=== PATIENT | male | born 1955 | race Caucasian/White ===

== ENCOUNTER 2018-11-22 08:35 | Emergency (ER) | payer OTHER ==
[~2018-11-22] VITALS: Ht 175.3 cm; Wt 83.2 kg
[~2018-11-22 08:35] MED LIST: AMOX1TAB58 PO; ASPI81TA50 PO; DIPH25CA58 PO; FISH12002 PO; FLAX100031 PO; HYDR1TAB10 PO; MELA3TAB2 PO; SULF1TAB24 PO
[2018-11-22 08:49] VITALS: BP 126/67
[2018-11-22] MEDS ORDERED: FLUT9.9S NS (09:16)
--- NOTE | 2018-11-22 09:16 | PHYS DOC ---
Past History Past Medical History: Kidney Stones, Other Past Surgical History: Other Alcohol Use: Rarely Drug Use: None Adult General Chief Complaint Chief Complaint: sinus pressure HPI HPI Patient is a 63 year old male who presents with complaint of bilateral sinus pressure. Patient has had congestion over the past 5 days. Notes previous history of chronic sinusitis symptoms. Patient states that he has had bilateral maxillary sinus surgery 9 months ago but has started to have recurrent sinus congestion off and on over the past 3 months. Has been using oral decongestants and Mucinex with no significant relief of symptoms. Denies any fever. Has used Afrin at night time to help with sleep over the past 5 nights. States symptoms improved during the day but are worse at nighttime. Denies any cough, shortness of breath. Has had postnasal drip and sore throat. Review of Systems Review of Systems Constitutional: Denies fever or chills [] Eyes: Denies change in visual acuity, redness, or eye pain [] HENT: Nasal congestion, sinus pressure, sore throat, postnasal drip[] Respiratory: Denies cough or shortness of breath [] Cardiovascular: Denies chest pain or edema[] GI: Denies abdominal pain, nausea, vomiting, bloody stools or diarrhea [] : Denies dysuria or hematuria [] Musculoskeletal: Denies back pain or joint pain [] Integument: Denies rash or skin lesions [] Neurologic: Denies headache, focal weakness or sensory changes [] All other systems were reviewed and found to be within normal limits, except as documented in this note. Allergies Allergies Allergies Coded Allergies Type Severity Reaction Last Updated Verified No Known Drug Allergies 02/23/16 No Physical Exam Physical Exam Constitutional: Well developed, well nourished, no acute distress, non-toxic appearance. [] HENT: Normocephalic, atraumatic, bilateral external ears normal, oropharynx moist, no oral exudates, nasal mucosal dryness bilaterally, mild nasal mucosal edema, maxillary sinuses nontender on palpation. [] Eyes: PERRLA, EOMI, conjunctiva normal, no discharge. [] Neck: Normal range of motion, no tenderness, supple, no stridor. [] Cardiovascular:Heart rate regular rhythm, no murmur [] Lungs & Thorax: Bilateral breath sounds clear to auscultation [] Abdomen: Bowel sounds normal, soft, no tenderness, no masses, no pulsatile masses. [] Skin: Warm, dry, no erythema, no rash. [] Back: No tenderness, no CVA tenderness. [] Extremities: No tenderness, no cyanosis, no clubbing, ROM intact, no edema. [] Neurologic: Alert and oriented X 3, normal motor function, normal sensory function, no focal deficits noted. [] Current Patient Data Vital Signs Vital Signs Date Time Temp Pulse Resp B/P (MAP) Pulse Ox O2 Delivery O2 Flow Rate FiO2 11/22/18 08:49 Room Air 11/22/18 08:49 97.6 66 20 96 Lab Results Not performed EKG EKG Not performed[] Radiology/Procedures Radiology/Procedures Not performed[] Course & Med Decision Making Course & Med Decision Making Pertinent Labs and Imaging studies reviewed. (See chart for details) Patient's exam consistent with nonbacterial bilateral maxillary sinusitis. At this time antibiotic therapy is not indicated. Advised use of Flonase nasal spray and use of Claritin daily to add current regimen. Advised to discontinue use of Afrin and advised limited dose of oral decongestants. Recommended use of warm moist air and nighttime humidifier for continued treatment of congestion. Recommended follow-up in 3-5 days with primary doctor for reevaluation and return to emergency department for any worsening symptoms. Patient was understanding and in agreement with treatment plan.[] Dragon Disclaimer Dragon Disclaimer This electronic medical record was generated, in whole or in part, using a voice recognition dictation system. Departure Departure: Impression: Primary Impression: Viral sinusitis Disposition: 01 HOME, SELF-CARE Condition: STABLE Referrals: EILEEN JOYA DO (PCP) Patient Instructions: Sinusitis Additional Instructions: Follow up with your primary doctor in 5 days for reevaluation. Return to the emergency department for any worsening symptoms. Scripts Fluticasone Propionate (Flonase Allergy Relief) 9.9 Ml [place].susp 2 SPRAYS NS DAILY for 30 Days, BOTTLE Prov: CRISTI JACOBS MD 11/22/18 CRISTI JACOBS MD Nov 22, 2018 09:16
== END 2018-11-22 09:30 | disposition home or self-care (01) ==
LOC: ER 08:35
DX: J32.0 Chronic maxillary sinusitis (principal); B97.89 Other viral agents as the cause of diseases classified elsewhere; Z87.442 Personal history of urinary calculi
CPT/HCPCS: 99283

== ENCOUNTER 2020-08-20 05:50 | Emergency (ER) | payer OTHER ==
[~2020-08-20] VITALS: Ht 175.3 cm; Wt 81.8 kg
[~2020-08-20 05:50] MED LIST changes: +FLUT9.9S NS; -MELA3TAB2 PO; +MELA3TAB4 PO
[2020-08-20 05:59] VITALS: BP 143/87
[2020-08-20] MEDS ORDERED: KETOROLAC 30 MG/ML VIAL. IVP ONE ×2 (06:00)
[2020-08-20] MEDS ORDERED: ONDANSETRON PF 4 MG/2 ML VIAL. IVP ONE (06:00)
[2020-08-20] MEDS ORDERED: FAMOTIDINE 20 MG/2 ML VIAL IVP ONE (06:00)
[2020-08-20] MEDS ORDERED: IV RINGERS SOLUTION,LACTATED 1,000 ML IV SCH (06:00)
--- NOTE | 2020-08-20 06:00 | PHYS DOC ---
Past History Past Medical History: Kidney Stones, Other (SHERI SINGH MD) Past Surgical History: Other (SHERI SINGH MD) Alcohol Use: Rarely Drug Use: None (SHERI SINGH MD) General Adult HPI: HPI: ".. I am having another kidneystone...this is my fourth one... It been hurting the last 8 hrs.. right side... I ve had stents.. .. basket.. and lithotripsy... This happens about every 5 years... " " I like that Toradol drug.... And that Demerol drug.. Do not like that morphine drug.. " Patient is a 65. year old male who presents with above hx and complaints of kidney stone pain right flank for the past 8 hours. Is having associated nausea. Patient is retired . (SHERI SINGH MD) Review of Systems: Review of Systems: Constitutional: Denies fever or chills Eyes: Denies change in visual acuity HENT: Denies nasal congestion or sore throat Respiratory: Denies cough or shortness of breath Cardiovascular: Denies chest pain or edema GI: Denies abdominal pain, nausea, vomiting, bloody stools or diarrhea : Denies dysuria Musculoskeletal: Denies back pain or joint pain Integument: Denies rash Neurologic: Denies headache, focal weakness or sensory changes Endocrine: Denies polyuria or polydipsia Lymphatic: Denies swollen glands Psychiatric: Denies depression or anxiety (SHERI SINGH MD) Allergies: Allergies: Allergies Coded Allergies Type Severity Reaction Last Updated Verified No Known Drug Allergies 02/23/16 No (SHERI SINGH MD) Physical Exam: PE: Constitutional: Well developed, well nourished, no acute distress, non-toxic appearance. [] HENT: Normocephalic, atraumatic, bilateral external ears normal, oropharynx moist, no oral exudates, nose normal. [] Eyes: PERRLA, EOMI, conjunctiva normal, no discharge. [] Neck: Normal range of motion, no tenderness, supple, no stridor. [] Cardiovascular:Heart rate regular rhythm, no murmur [] Lungs & Thorax: Bilateral breath sounds clear to auscultation [] Abdomen: Bowel sounds normal, soft, no tenderness, no masses, no pulsatile masses. [] Skin: Warm, dry, no erythema, no rash. [] Back: No tenderness, no CVA tenderness. [] Extremities: No tenderness, no cyanosis, no clubbing, ROM intact, no edema. [] Neurologic: Alert and oriented X 3, normal motor function, normal sensory function, no focal deficits noted. [] Psychologic: Affect normal, judgement normal, mood normal. [] (SHERI SINGH MD) EKG: EKG: [] (SHERI SINGH MD) Radiology/Procedures: Radiology/Procedures: [] (SHERI SINGH MD) Radiology/Procedures: IMAGING REPORT Signed PATIENT: EILEEN MONIQUE ACCOUNT: [id number] : 1955 LOCATION: ER AGE: 65 SEX: M EXAM STATUS: REG ER ORD. PHYSICIAN: SHERI SINGH MD REASON: Rt. flank pain PROCEDURE: ACUTE ABDOMEN SERIES EXAMINATION: XR ABDOMEN COMP ACUTE CLINICAL HISTORY: Right flank pain TECHNIQUE: XR ABDOMEN COMP ACUTE COMPARISON: None FINDINGS: Nonspecific nonobstructive bowel gas pattern extending to the rectum. Stool throughout the colon. Small left renal calculus. No right renal calculus visualized. Normal heart size. No evidence of focal airspace consolidation, pleural effusion, or pneumothorax. Multilevel thoracolumbar degenerative changes. Suture anchors in the right shoulder. IMPRESSION: No evidence of acute abdominopelvic or cardiopulmonary abnormality. Small left renal calculus. Stool throughout the colon. Electronically signed by: Maico Ritchie DO (08/20/2020 8:02 AM) [facility] DICTATED AND SIGNED BY: MAICO RITCHIE DO DATE: 08/20/20 0800 CC: EILEEN JOYA DO; SHERI SINGH MD; SERENA JOHNS DO ~MTH0 0 IMAGING REPORT Signed PATIENT: EILEEN MONIQUE ACCOUNT: [id number] : 1955 LOCATION: ER AGE: 65 SEX: M EXAM STATUS: REG ER ORD. PHYSICIAN: SHERI SINGH MD REASON: Rt. flank.. pain PROCEDURE: CT ABDOMEN PELVIS WO CONTRAST EXAMINATION: CT ABDOMEN+PELVIS WO (CT ABDOMEN/PELVIS WITHOUT IV CONTRAST) CLINICAL HISTORY: Right flank pain TECHNIQUE: Non-IV contrast imaging of the abdomen and pelvis was performed using standard technique, scanning from just above the dome of the diaphragm to the symphysis pubis. Unenhanced imaging is limited for the evaluation of some intra-abdominal and pelvic pathology. CT Dose Reduction Employed: One or more of the following individualized dose red uction techniques were utilized for this examination: 1. Automated exposure control 2. Adjustment of the mA and/or kV according to patient size 3. Use of iterative reconstruction technique. COMPARISON: Acute abdomen series same day, CT abdomen/pelvis 03/28/2016 FINDINGS: Partially visualized coronary atherosclerotic calcification. Minimal dependent bibasilar subsegmental atelectasis. Liver, gallbladder, pancreas, spleen, and adrenal glands unremarkable. No right nephrolithiasis. 5 mm nonobstructive calculus in the lower pole of the left kidney. No ureteral or bladder calculi. No hydronephrosis. 1.4 cm cortical cyst upper pole of the right kidney. Moderately filled urinary bladder unremarkable. Central prostatic ossifications. No dilated bowel. Evaluation for bowel wall thickening limited by lack of intravenous contrast. Moderate stool throughout the colon. Normal air-filled appendix. Arterial atherosclerotic calcification without aneurysm. Multiple prominent but nonenlarged mesenteric lymph nodes, nonspecific. Multilevel thoracolumbar degenerative changes. IMPRESSION: No evidence of acute abdominopelvic abnormality. Nonobstructive left renal calculus, otherwise no evidence of urolithiasis or obstructive uropathy. Moderate stool throughout the colon. Electronically signed by: Maico Ritchie DO (08/20/2020 8:00 AM) [facility] DI[facility] AND SIGNED BY: MAICO RITCHIE DO DATE: 08/20/20 0744 CC: EILEEN JOYA DO; SHERI SINGH MD; SERENA JOHNS DO ~MTH0 0 (SERENA JOHNS DO) Heart Score: Risk Factors: Risk Factors: DM, Current or recent (<one month) smoker, HTN, HLP, family history of CAD, obesity. Risk Scores: Score 0 - 3: 2.5% MACE over next 6 weeks - Discharge Home Score 4 - 6: 20.3% MACE over next 6 weeks - Admit for Clinical Observation Score 7 - 10: 72.7% MACE over next 6 weeks - Early Invasive Strategies (SHERI SINGH MD) Course & Med Decision Making: Course & Med Decision Making Pertinent Labs and Imaging studies reviewed. (See chart for details) [] (SHERI SINGH MD) Course & Med Decision Making I received signout from Dr. Singh at shift change. 65-year-old male past medical history of insomnia with complaints of sharp, nonradiating, right flank pain that started last night around 9 PM with associated nausea. Patient reports this feels like his typical kidney stone pain-has had 4 prior similar e pisodes of nephrolithiasis. Last kidney stone was in 2015 patient was seen in the ED-had a 7 mm proximal left ureteral nonobstructing stone (mild aortoiliac calcified atherosclerosis was seen) at that time and followed up outpatient with urology. Reports in 2010 he had to have ureteral stents placed. Has also received lithotripsy in the past. Pt denies any fever/chills, urinary sxs (dysuria/hematuria/frequency/urgency), vomiting, neuro deficits or abdominal/pelvic pain. Imaging not consistent with any renal colic, no nephrolithiasis. Descending thoracic aorta and abdominal aorta with normal diameters in 2 dimensions. Labs unremarkable. Patient is afebrile. HR 55. U/A with no infection, RBCs or hematuria. Pt calm appearing, not writhing, in no distress. Vital signs stable. Does have asymptomatic bradycardia. Will dc home with strict ED return precautions were given for severe chest or back pain, neurologic deficits or syncope. Encouraged urgent outpatient follow-up with PMD, cardiology and urology. Life-threatening processes were considered but are low suspicion at this time, given history and physical exam. Pt was educated on all prescription medications and adverse effects. All patient's questions were answered and pt was stable at time of discharge. Life/limb-threatening differential includes but is not limited to, aortic dissection/aneurysm, cauda equina syndrome, transverse myelitis, spinal cord compression, epidural abscess or hematoma, osteomyelitis, disc herniation, surgical abdomen, stable or unstable fracture, renal/ureteral colic, sepsis, musculoskeletal injury, traumatic injury, intraabdominal or pelvic bleeding. I spoken with the patient and her caregivers. I explained the patient's condition, diagnoses and treatment plan based on the information available to me at this time. I have answered the patient and her caregiver's questions and addressed any concerns. The patient and her caregivers have a good understanding of patient's diagnosis, condition and treatment plan as can be expected at this point. Vital signs have been stable. Patient's condition is stable and appropriate for discharge from the emergency department. Patient will pursue further outpatient evaluation with primary care physician or other designated or consulting physician as outlined in the discharge instructions. The patient and/or caregivers are agreeable to this plan of care and follow-up instructions have been explained in detail. The patient and/or caregivers have received these instructions in written form and have expressed an understanding of the discharge instructions. The patient and/or caregivers are aware that any significant change of condition or worsening of symptoms should prompt immediate return to this or the closest emergency department or call to 911. (SERENA JOHNS DO) Dragon Disclaimer: Dragon Disclaimer: This electronic medical record was generated, in whole or in part, using a voice recognition dictation system. (SHERI SINGH MD) Departure Departure: Impression: Primary Impression: Right flank pain, chronic Additional Impressions: Left nephrolithiasis Sinus bradycardia Disposition: 01 DC HOME SELF CARE/HOMELESS Condition: STABLE Referrals: EILEEN JOYA DO (PCP) in 1-2 weeks Patient Instructions: Bradycardia, Diet for Kidney Stones, Flank Pain Additional Instructions: FOLLOW WITH UROLOGY: [facility] [address] [place] [address] [place] [facility] [address] [facility] [address] [place] [address] FOLLOW UP WITH CARDIOLOGY: [facility] [address] [facility] [address] [place] [address] [place] [facility] [address] [address] EMERGENCY DEPARTMENT GENERAL DISCHARGE INSTRUCTIONS Thank you for coming to [facility] (ED) today and trusting us with you care. We trust that you had a positivie experience in our Emergency Department. If you wish to speak to the department management, you may call the director at [phone]. YOUR FOLLOW UP INSTRUCTIONS ARE FOLLOWS: 1. Do you have a private Doctor? If you do not have a private doctor, please ask for a resource list of physicians or clinics that may be able to assist you with follow up care. 2. The Emergency Physician has interpreted your x-rays. The X-Ray specialist will also review them. If there is a change in the findings, you will be notified in 48 hours when at all possible. 3. A lab test or culture has been done, your results will be reviewed and you will be notified if you need a change in treatment. ADDITIONAL INSTRUCTIONS AND INFORMATION: 1. Your care today has been supervised by a physician who is specially trained in emergency care. Many problems require more than one evaluation for a complete diagnosis and treatment. We recommend that you schedule your follow up appointment as recommended to ensure complete treatment of you illness or injury. If you are unable to obtain follow up care and continue to have a problem, or if your condition worsens, we recommend that you return to the ED. 2. We are not able to safely determine your condition over the phone nor are we able to give sound medical advice over the phone. For these safety reasons, if you call for medical advice we will ask you to come to the ED for further evaluation. 3. If you have any questions regarding these discharge instructions please call the ED at [phone]. SAFETY INFORMATION: In the interest of safety, wellness, and injury prevention; we encourage you to wear your sealbelt, if you smoke; quite smoking, and we encourage family to use a protective helmet for bicycling and other sporting events that present an increased risk for head injury. IF YOUR SYMPTOMS WORSEN OR NEW SYMPTOMS DEVELOP, OR YOU HAVE CONCERNS ABOUT YOUR CONDITION; OR IF YOUR CONDITION WORSENS WHILE YOU ARE WAITING FOR YOUR FOLLOW UP APPOINTMENT; EITHER CONTACT YOUR PRIMARY CARE DOCTOR, THE PHYSICIAN WHOSE NAME AND NUMBER YOU WERE GIVEN, OR RETURN TO THE ED IMMEDIATELY. SHERI SINGH MD Aug 20, 2020 06:00 SERENA JOHNS DO Aug 20, 2020 06:31
[2020-08-20 06:36] LABS: BASO % 1 % (0-3); CALCIUM 8.6 mg/dL (8.5-10.1); CREATININE 1.2 mg/dL (0.7-1.3); EOS # 0.5 x10^3/uL (0.0-0.7); EOS % 6 % (0-3); HEMATOCRIT 48.2 % (39.0-53.0); HEMOGLOBIN 16.1 g/dL (13.0-17.5); LYMPH # 2.1 x10^3/uL (1.0-4.8); LYMPH % 27 % (24-48); MEAN CORPUSCULAR HEMOGLOBIN 30 pg (25-35); MEAN CORPUSCULAR HGB CONC 34 g/dL (31-37); MEAN CORPUSCULAR VOLUME 91 fL (79-100); MONO # 0.7 x10^3/uL (0.0-1.1); MONO % 9 % (0-9); NEUT # 4.5 x10^3uL (1.8-7.7); NEUT % 57 % (31-73); PLATELET COUNT 219 x10^3/uL (140-400); POTASSIUM 3.7 mmol/L (3.5-5.1); RED BLOOD COUNT 5.31 x10^6/uL (4.30-5.70); RED CELL DISTRIBUTION WIDTH 13.2 % (11.5-14.5); WHITE BLOOD COUNT 7.9 x10^3/uL (4.0-11.0)
[2020-08-20 06:42] LABS: ALBUMIN 3.8 g/dL (3.4-5.0); DIRECT BILIRUBIN 0.1 mg/dL (0.0-0.2); TOTAL BILIRUBIN 0.3 mg/dL (0.2-1.0); TOTAL PROTEIN 7.4 g/dL (6.4-8.2)
--- NOTE | 2020-08-20 08:03 | RAD ---
EXAMINATION: CT ABDOMEN+PELVIS WO (CT ABDOMEN/PELVIS WITHOUT IV CONTRAST) CLINICAL HISTORY: Right flank pain TECHNIQUE: Non-IV contrast imaging of the abdomen and pelvis was performed using standard technique, scanning from just above the dome of the diaphragm to the symphysis pubis. Unenhanced imaging is pineda ited for the evaluation of some intra-abdominal and pelvic pathology. CT Dose Reduction Employed: One or more of the following individualized dose reduction techniques wer e utilized for this examination: 1. Automated exposure control 2. Adjustment of the mA and/or kV ac cording to patient size 3. Use of iterative reconstruction technique. COMPARISON: Acute abdomen series same day, CT abdomen/pelvis 03/28/2016 FINDINGS: Partially visualized coronary atherosclerotic calcification. Minimal dependent bibasilar subsegmental atelectasis. Liver, gallbladder, pancreas, spleen, and adrenal glands unremarkable. No right nephrolithiasis. 5 mm nonobstructive calculus in the lower pole of the left kidney. No urete ral or bladder calculi. No hydronephrosis. 1.4 cm cortical cyst upper pole of the right kidney. Moder ately filled urinary bladder unremarkable. Central prostatic ossifications. No dilated bowel. Evaluation for bowel wall thickening limited by lack of intravenous contrast. Moder ate stool throughout the colon. Normal air-filled appendix. Arterial atherosclerotic calcification without aneurysm. Multiple prominent but nonenlarged mesenteri c lymph nodes, nonspecific. Multilevel thoracolumbar degenerative changes. IMPRESSION: No evidence of acute abdominopelvic abnormality. Nonobstructive left renal calculus, otherwise no evidence of urolithiasis or obstructive uropathy. Moderate stool throughout the colon. Electronically signed by: Maico Connors DO (08/20/2020 8:00 AM) [facility]
--- NOTE | 2020-08-20 08:05 | RAD ---
EXAMINATION: XR ABDOMEN COMP ACUTE CLINICAL HISTORY: Right flank pain TECHNIQUE: XR ABDOMEN COMP ACUTE COMPARISON: None FINDINGS: Nonspecific nonobstructive bowel gas pattern extending to the rectum. Stool throughout the colon. Sma ll left renal calculus. No right renal calculus visualized. Normal heart size. No evidence of focal airspace consolidation, pleural effusion, or pneumothorax. Multilevel thoracolumbar degenerative changes. Suture anchors in the right shoulder. IMPRESSION: No evidence of acute abdominopelvic or cardiopulmonary abnormality. Small left renal calculus. Stool throughout the colon. Electronically signed by: Maico Connors DO (08/20/2020 8:02 AM) [facility]
[2020-08-20] MEDS ORDERED: ACETAMINOPHEN 325 MG TABLET PO ONE (09:15)
[2020-08-20 09:59] LABS: BILIRUBIN,URINE NEG (NEG); CLARITY,URINE HAZY; COLOR,URINE YELLOW; GLUCOSE,URINE NEG (NEG); NITRITE,URINE NEG (NEG); UROBILINOGEN,URINE 0.2 mg/dL (0.2 mg/dL)
[2020-08-20 10:00] LABS: BACTERIA,URINE 0 /HPF (0-FEW); RBC,URINE 0 /HPF (0-2); SQUAMOUS EPITHELIAL CELL,UR OCC /LPF; WBC,URINE 0 /HPF (0-4)
== END 2020-08-20 10:37 | disposition home or self-care (01) ==
LOC: ER 05:50
DX: N20.0 Calculus of kidney (principal); R00.1 Bradycardia, unspecified; G89.29 Other chronic pain; Z87.442 Personal history of urinary calculi
CPT/HCPCS: 36415; 74022; 74176; 80048; 80076; 81001; 82550; 83690; 85025; 85610; 85730; 96361; 96374; 96375; 99285; J1885; J2405; J3490; J7120

== ENCOUNTER → 2020-09-19 | Outpatient (CLI) | payer OTHER ==
[2020-08-20 05:59] VITALS: BP 143/87
== END ==
LOC: LAB 13:20
PROVIDERS: ATTEND Urology
DX: Z20.828 Contact with and (suspected) exposure to other viral communicable diseases (principal)
CPT/HCPCS: U0003